=== PATIENT | female | born 1995 | race Caucasian/White ===

== ENCOUNTER 2018-10-18 19:01 | Emergency (ER) | payer MEDICAID ==
[~2018-10-18] VITALS: Ht 160 cm; Wt 73.0 kg
[2018-10-18 20:35] VITALS: BP 117/80
== END 2018-10-18 20:35 | disposition home or self-care (01) ==
LOC: ED 19:01
DX: L25.9 Unspecified contact dermatitis, unspecified cause (principal)
CPT/HCPCS: J7512